=== PATIENT | female | born 1955 | race Caucasian/White ===

== ENCOUNTER 2019-02-13 09:32 | Day surgery (SDC) | payer OTHER ==
[2019-02-13] MEDS ORDERED: LACTATED RINGERS 1,000 ML IV ONE (10:35)
[2019-02-13] MEDS ORDERED: fentaNYL 250 MCG/5 ML VIAL IVP ONE (11:40)
[2019-02-13] MEDS ORDERED: MIDAZOLAM 2 MG/2 ML VIAL IVP ONE (11:40)
[2019-02-13 13:19] VITALS: BP 96/69
== END 2019-02-13 09:33 | disposition home or self-care (01) ==
LOC: SDS 09:32
PROVIDERS: ATTEND Internal Medicine Gastroenterology
PROC: 0DBK8ZZ Excision of Ascending Colon, Via Natural or Artificial Opening Endoscopic (ICD-10-PCS; 2019-02-13)
PROC: 0DBP8ZZ Excision of Rectum, Via Natural or Artificial Opening Endoscopic (ICD-10-PCS; principal; 2019-02-13 10:45)
DX: Z12.11 Encounter for screening for malignant neoplasm of colon (principal); D12.2 Benign neoplasm of ascending colon; K62.1 Rectal polyp; E66.9 Obesity, unspecified; Z68.33 Body mass index [BMI] 33.0-33.9, adult; J45.909 Unspecified asthma, uncomplicated
CPT/HCPCS: 45380; 45385; J3010; J7120

== ENCOUNTER 2019-09-21 15:36 | Outpatient (CLI) | payer OTHER | END 2019-09-21 15:37 | disposition home or self-care (01) | LOC: RT 15:36 | PROVIDERS: ATTEND Naprapath | DX: Z01.818 Encounter for other preprocedural examination (principal); Z13.6 Encounter for screening for cardiovascular disorders | CPT/HCPCS: 93005 ==

== ENCOUNTER 2020-01-14 17:14 | Emergency (ER) | payer OTHER ==
[2020-01-14] MEDS ORDERED: HYDROcod/ACETAM 5/325 MG TABLET PO STA (17:33)
--- NOTE | 2020-01-14 17:34 | ED Physician Documentation ---
PD HPI UPPER EXT INJURY - Stated complaint Stated Complaint: RT SHOULDER PX - Chief complaint Chief Complaint: Ext Problem - History obtained from History obtained from: Patient, Family - History of Present Illness Location: Right (She woke up today with severe right shoulder pain. No clear injury. She cannot move it at all. No history of problems with the shoulder but she has had some back issues in the past.) - Additonal information Additional information: Further history after imaging, patient had slept alone downstairs last night. When she woke up there was some mild delirium and she "sweated," but her noted that it was on one side of the nightgown near the buttock and could also have been urinary incontinence. This leads to the question of potential seizure activity although she never had one. Review of Systems Ten Systems: 10 systems reviewed and negative Constitutional: denies: Fever, Chills Neurologic: denies: Headache, Head injury PD PAST MEDICAL HISTORY - Past Medical History Cardiovascular: None Respiratory: Asthma Endocrine/Autoimmune: None GI: None : None Psych: Depression, Anxiety, Panic attacks Musculoskeletal: None Derm: None - Present Medications Home Medications: Ambulatory Orders Medication Instructions Recorded Confirmed Hydrocodone/Acetaminophen 1 - 2 each PO Q6H PRN #20 tablet 01/14/20 [Hydrocodon-Acetaminophen 5-325] - Allergies Allergies/Adverse Reactions: Allergies Allergy/AdvReac Type Severity Reaction Status Date / Time No Known Drug Allergies Allergy Verified 01/14/20 17:19 PD ED PE NORMAL - Vitals Vital signs reviewed: Yes - General General: Alert and oriented X 3, No acute distress - HEENT HEENT: PERRL, EOMI - Neck Neck: Supple, no meningeal sign, No bony TTP - Extremities Extremities: Other (The shoulder is nontender on the right. She cannot range it at all though. I am able to range it somewhat passively, but even passively cannot get it much above 45 degrees) - Neuro Neuro: Alert and oriented X 3, Normal speech Results - Vitals Vitals: Vital Signs - 24 hr 01/14/20 01/14/20 01/14/20 17:19 18:33 18:38 Temperature 36.5 C Heart Rate 64 62 57 L Respiratory 16 16 16 Rate Blood Pressure 102/61 104/70 103/69 O2 Saturation 98 94 95 01/14/20 01/14/20 01/14/20 18:44 19:32 20:09 Temperature Heart Rate 64 56 L 60 Respiratory 16 18 22 Rate Blood Pressure 99/65 99/66 100/68 O2 Saturation 99 100 100 01/14/20 01/14/20 01/14/20 20:20 20:21 20:22 Temperature Heart Rate 68 61 59 L Respiratory 18 12 15 Rate Blood Pressure 100/68 114/73 94/48 L O2 Saturation 100 95 97 01/14/20 01/14/20 20:23 20:28 Temperature Heart Rate 57 L 65 Respiratory 16 14 Rate Blood Pressure 108/70 113/76 O2 Saturation 100 100 Oxygen O2 Source Nasal cannula - Labs Labs: Laboratory Tests 01/14/20 01/14/20 18:35 18:35 WBC 7.6 RBC 4.28 Hgb 14.1 Hct 40.1 MCV 93.7 MCH 32.9 H MCHC 35.2 RDW 12.7 Plt Count 242 MPV 10.4 Neut # (Auto) 6.1 Lymph # (Auto) 0.9 L Nelson # (Auto) 0.4 Eos # (Auto) 0.0 Baso # (Auto) 0.0 Absolute Nucleated RBC 0.00 Nucleated RBC % 0.0 Sodium 137 Potassium 3.6 Chloride 101 Carbon Dioxide 26 Anion Gap 10.0 BUN 8 Creatinine 0.7 Estimated GFR (MDRD) 84 L Glucose 97 Calcium 8.8 Total Bilirubin 0.8 AST 25 ALT 24 Alkaline Phosphatase 54 Total Protein 6.5 L Albumin 3.8 Globulin 2.7 Albumin/Globulin Ratio 1.4 Lipase 30 - Rads (name of study) Right shoulder x-ray Radiology: EMP read contemporaneously (Comminuted fracture dislocation of the humeral head with an avulsion of the greater tuberosity and comminuted fracture fragments) Procedures - Reduction Body part reduced: Right, Shoulder Fracture or dislocation: Fracture dislocation Anesthesia: Conscious sedation Shoulder reduction technique: Traction - counter tract Reduction aftercare: Alignment improved, Sling - Procedural sedation Sedation prep: Informed consent, Time out completed, Last meal (yest), PE performed, AHA 1 - healthy Sedation medications: propofol (80mg IVP x 1) Patient status during sedation: Responds to tactile, Vitals remained stable, Maintained airway, Recovered uneventfully Sedation recovery: Recovered uneventfully Time in sedation (Minutes): 10 PD MEDICAL DECISION MAKING - ED course ED course: This is a very pleasant 65-year-old woman who presents with atraumatic right shoulder pain in a pattern most consistent with a rotator cuff issue. I was very surprised when I saw her x-rays that showed a fracture dislocation, this was again without trauma. Case was reviewed by phone with the on-call orthopedic surgeon, Dr. Luz. He recommends a trial of reduction and then a CT scan to evaluate for pathologic bone there. It has been a few years since her last mammogram but prior mammograms were okay. Only a few years since her last colonoscopy which was without neoplastic disease. The CT was negative, but the shoulder was still not reduced, the orthopedic surgeon came in and I re-sedated her with propofol and he was able to get it reduced. Still some question about why this happened without trauma. I do not see any evidence of pathologic fracture on the CT. The question of seizure came up given the potential for incontinence, and a CT of the head was done and negative. Departure - Departure Disposition: 01 Home, Self Care Clinical Impression: Confusion Fracture dislocation of shoulder joint Qualifiers: Encounter type: initial encounter Fracture type: closed Laterality: right Qualified Code(s): S42.91XA - Fracture of right shoulder girdle, part unspecified, initial encounter for closed fracture Condition: Good Record reviewed to determine appropriate education?: Yes Instructions: ED Fx Shoulder, ED Dislocation Shoulder Redu Follow-Up: [facility] [Provider Group] Prescriptions: Hydrocodone/Acetaminophen [Hydrocodon-Acetaminophen 5-325] 1 - 2 each PO Q6H PRN #20 tablet PRN Reason: pain Comments: Follow-up with the primary care physician as soon as possible. Return for new or worsening symptoms. Call the orthopedics office tomorrow for further evaluation and treatment. As discussed no clear evidence of seizure but I think the safest thing would to be not to drive until primary care physician has referred you to neurology and had that work-up.
--- NOTE | 2020-01-14 18:01 | XRAY Report ---
PROCEDURE: Shoulder 3 View RT INDICATIONS: shoulder pain TECHNIQUE: 3 views of the shoulder were acquired. COMPARISON: None. FINDINGS: Bones: There is a comminuted fracture/dislocation seen involving the right shoulder. There is anteri or dislocation of the right humeral head in relation to the glenoid fossa. The greater tuberosity is avulsed, with numerous associated comminuted fracture fragments. No suspicious bony lesions. Visualized ribs appear intact. Age-appropriate degenerative changes ar e seen. Soft tissues: No suspicious soft tissue calcifications. The visualized lung demonstrates a normal a ppearance. IMPRESSION: Right shoulder fracture/dislocation. If clinically appropriate, please consider a dedicated shoulder CT for further evaluation. Reviewed by: Adiel Crane MD on 01/14/2020 4:59 PM ALLY Approved by: Adiel Crane MD on 01/14/2020 4:59 PM ALLY Station ID: [id number]
[2020-01-14] MEDS ORDERED: PROPOFOL 200 MG/20 ML VIAL IVP STA ×2 (18:24→19:54)
[2020-01-14 18:52] LABS: BASOPHILS % (AUTO) 0.5 %; EOSINOPHILS % (AUTO) 0.1 %; HGB - HEMOGLOBIN 14.1 g/dL (12.0-16.0); LYMPHOCYTES # (AUTO) 0.9 10^3/uL (1.5-3.5); LYMPHOCYTES % (AUTO) 12.4 %; MEAN CORPUSCULAR HEMOGLOBIN 32.9 pg (27.0-31.0); MEAN CORPUSCULAR HGB CONC 35.2 g/dL (32.0-36.0); MEAN CORPUSCULAR VOLUME 93.7 fL (81.0-99.0); MEAN PLATELET VOLUME 10.4 fL (7.9-10.8); MONOCYTES # (AUTO) 0.4 10^3/uL (0.0-1.0); MONOCYTES % (AUTO) 5.8 %; NEUTROPHILS # (AUTO) 6.1 10^3/uL (1.5-6.6); NEUTROPHILS % (AUTO) 80.9 %; PLT - PLATELET COUNT 242 10^3/uL (130-450); RED BLOOD COUNT 4.28 10^6/uL (4.20-5.40); RED CELL DISTRIBUTION WIDTH 12.7 % (12.0-15.0); WHITE BLOOD COUNT 7.6 x10^3/uL (4.8-10.8)
[2020-01-14 19:03] LABS: ALBUMIN 3.8 g/dL (3.2-5.5); ALBUMIN/GLOBULIN RATIO 1.4 (1.0-2.2); BILIRUBIN,TOTAL 0.8 mg/dL (0.2-1.0); CALCIUM 8.8 mg/dL (8.5-10.3); CREATININE 0.7 mg/dL (0.4-1.0); TOTAL PROTEIN 6.5 g/dL (6.7-8.2)
--- NOTE | 2020-01-14 19:59 | CT Report ---
PROCEDURE: HEAD WO INDICATIONS: poss seizure TECHNIQUE: Noncontrast 4.5 mm thick angled axial sections acquired from the foramen magnum to the vertex. For r adiation dose reduction, the following was used: automated exposure control, adjustment of mA and/or kV according to patient size. COMPARISON: None. FINDINGS: Image quality: Excellent. CSF spaces: Basal cisterns are patent. No extra-axial fluid collections. Ventricles are normal in size and shape. Brain: No midline shift. No intracranial masses or hemorrhage. Webster-white matter interface is norm al. Skull and face: Calvarium and visualized facial bones are intact, without suspicious lesions. Sinuses: Visualized sinuses and mastoids are clear. IMPRESSION: 1. No acute intracranial process. Reviewed by: Swathi Sean MD on 01/14/2020 7:58 PM PDT Approved by: Swathi Sena MD on 01/14/2020 7:58 PM PDT Station ID: [id number]
--- NOTE | 2020-01-14 20:04 | CT Report ---
PROCEDURE: UPPER EXTREMITY WO - RT INDICATIONS: post reduction R shoulder frx/dislocation NO TRAUM TECHNIQUE: Noncontrast 3 mm axial sections acquired of the right shoulder, with coronal and sagittal reformats. COMPARISON: X-ray shoulder 01/14/2020 FINDINGS: Image quality: Excellent. Bones: There is a comminuted dislocated fracture of the humeral head. There is fracture and avulsion of the greater tuberosity. The remaining portion of the humeral head is located in an nondisplaced f racture is noted along the posterior scapula, medial to the glenohumeral joint. Inferior location in relation to the glenohumeral joint. Small areas of fracture are noted along the glenoid margin of the glenohumeral joint particularly the inferior aspect. Soft tissues: Soft tissue edema/hematoma is present. IMPRESSION: 1. Comminuted fracture of the humeral head including avulsion of the greater tuberosity. 2. Dislocation of the humeral head inferiorly from the glenohumeral joint. 3. Nondisplaced fracture along the inferior margin of the glenoid at the glenohumeral joint. 4. Nondisplaced fracture of the posterior scapula noted medial to the glenohumeral joint. Reviewed by: Swathi Sena MD on 01/14/2020 8:02 PM PDT Approved by: Swathi Sena MD on 01/14/2020 8:02 PM PDT Station ID: [id number]
--- NOTE | 2020-01-14 20:33 | XRAY Report ---
PROCEDURE: Shoulder 2 View RT INDICATIONS: Postreduction #2 TECHNIQUE: 2 views of the shoulder were acquired. COMPARISON: X-ray shoulder and CT shoulder 01/14/2020 FINDINGS: Bones: There is been interval reduction of previous shoulder dislocation with good anatomic alignment . Comminuted humeral head fracture with avulsion of the greater tuberosity is again noted. Areas of f racture along the glenoid as well as scapula are better appreciated on CT exam. No suspicious bony le sions. Visualized ribs appear intact. Soft tissues: No suspicious soft tissue calcifications. IMPRESSION: Interval reduction of dislocated humeral fracture with good anatomic alignment as above. Reviewed by: Swathi Sena MD on 01/14/2020 8:31 PM PDT Approved by: Swathi Sena MD on 01/14/2020 8:31 PM PDT Station ID: [id number]
[2020-01-14] MEDS ORDERED: HYDROcod/ACET 5/325 Prepack 4 PO STA (20:36)
[2020-01-14] MEDS ORDERED: MORPHINE 2 MG/ML CARPUJECT IVP STA (20:36)
--- NOTE | 2020-01-14 20:44 | HISTORY & PHYSICAL EXAMINATION ---
HPI - History Obtained From History obtained from: Patient (This is a relatively healthy 65-year-old woman who presents to the emergency room with pain to her right shoulder. She denies any recollection of any recent or past injury to her right shoulder. She awoken this morning with some pain and confusion with the pain being to her right shoulder. She winn) PMH/PSH - Past Medical History Cardiovascular: positive: None Respiratory: positive: Asthma Neuro: positive: None Endocrine/Autoimmune: positive: None GI: positive: None : positive: None Psych: positive: Depression, Anxiety, Panic attacks Musculoskeletal: positive: None Derm: positive: None MRSA Hx?: No Social & Family Hx - Social History Does the pt smoke?: No Smoking Status: Never smoker Meds/Allgy - Home Medications Home Medications: Ambulatory Orders Medication Instructions Recorded Confirmed Hydrocodone/Acetaminophen 1 - 2 each PO Q6H PRN #20 tablet 01/14/20 [Hydrocodon-Acetaminophen 5-325] - Allergies Allergies/Adverse Reactions: Allergies Allergy/AdvReac Type Severity Reaction Status Date / Time No Known Drug Allergies Allergy Verified 01/14/20 17:19 Review of Systems - Constitutional Constitutional: denies: Fatigue (Negative review of systems) Exam - Vital Signs Vital Signs: Vital Signs x48h Temp Pulse Resp BP Pulse Ox 01/14/20 20:28 65 14 113/76 100 01/14/20 20:23 57 L 16 108/70 100 01/14/20 20:22 59 L 15 94/48 L 97 01/14/20 20:21 61 12 114/73 95 01/14/20 20:20 68 18 100/68 100 01/14/20 20:09 60 22 100/68 100 01/14/20 19:32 56 L 18 99/66 100 01/14/20 18:44 64 16 99/65 99 01/14/20 18:38 57 L 16 103/69 95 01/14/20 18:33 62 16 104/70 94 01/14/20 17:19 36.5 C 64 16 102/61 98 - Physical Exam General Appearance: positive: Mild distress Eyes Bilateral: positive: Normal inspection ENT: positive: ENT inspection nml Neck: positive: Nml inspection Respiratory: positive: Chest non-tender Cardiovascular: positive: Regular rate & rhythm Abdomen: positive: Non-tender Skin: positive: Color nml Extremities: negative: Other (Right shoulder shows a space beneath the acromion. Sensation of the deltoid is intact. She has limited and painful movement of the right shoulder. Skin is intact. The right shoulder is tender anteriorly and laterally. Pulses are intact to right upper extremity.) Results - Lab Results Fish Bones: 01/14/20 18:35 01/14/20 18:35 Other Lab Results: Lab Results x24hrs 01/14/20 01/14/20 Range/Units 18:35 18:35 WBC 7.6 (4.8-10.8) x10^3/uL RBC 4.28 (4.20-5.40) 10^6/uL Hgb 14.1 (12.0-16.0) g/dL Hct 40.1 (37.0-47.0) % MCV 93.7 (81.0-99.0) fL MCH 32.9 H (27.0-31.0) pg MCHC 35.2 (32.0-36.0) g/dL RDW 12.7 (12.0-15.0) % Plt Count 242 (130-450) 10^3/uL MPV 10.4 (7.9-10.8) fL Neut # (Auto) 6.1 (1.5-6.6) 10^3/uL Lymph # (Auto) 0.9 L (1.5-3.5) 10^3/uL Mayes # (Auto) 0.4 (0.0-1.0) 10^3/uL Eos # (Auto) 0.0 (0.0-0.7) 10^3/uL Baso # (Auto) 0.0 (0.0-0.1) 10^3/uL Absolute Nucleated RBC 0.00 x10^3/uL Nucleated RBC % 0.0 /100WBC Sodium 137 (135-145) mmol/L Potassium 3.6 (3.5-5.0) mmol/L Chloride 101 (101-111) mmol/L Carbon Dioxide 26 (21-32) mmol/L Anion Gap 10.0 (6-13) BUN 8 (6-20) mg/dL Creatinine 0.7 (0.4-1.0) mg/dL Estimated GFR (MDRD) 84 L (>89) Glucose 97 (70-100) mg/dL Calcium 8.8 (8.5-10.3) mg/dL Total Bilirubin 0.8 (0.2-1.0) mg/dL AST 25 (10-42) IU/L ALT 24 (10-60) IU/L Alkaline Phosphatase 54 (42-121) IU/L Total Protein 6.5 L (6.7-8.2) g/dL Albumin 3.8 (3.2-5.5) g/dL Globulin 2.7 (2.1-4.2) g/dL Albumin/Globulin Ratio 1.4 (1.0-2.2) Lipase 30 (22-51) U/L - Diagnostic Imaging Results Diagnostic Imaging Results: positive: Read independently (There is a fracture dislocation of the right shoulder with a comminuted and relatively large greater tuberosity fragment. The humeral head is dislocated anteriorly. An attempt at closed reduction by the emergency room physician was unsuccessful and show pe rsistence of the fracture dislocation. Th) Impression/Plan - Problem List Problem List: Fracture greater tuberosity with anterior dislocation right shoulder I suggested a attempt at closed reduction using heavy sedation with providing sedation. I have discussed the risks, goals and alternatives. She is in agreement to the procedure. If she cannot achieve a reduction of the humeral head into the glenoid fossa, then she will need surgical treatment in the operating room. This procedure will be performed to the emergency room. She may require future surgery for any recurrence of dislocation or perhaps if fracture of the greater tuberosity does not realign in a satisfactory fashion. Other potential issues are axillary nerve injury from dislocation. She is in agreement to the procedure, has signed informed consent; actually, her has signed the consent since she has had some previous sedation.
[2020-01-14 20:46] VITALS: BP 112/77
--- NOTE | 2020-01-14 20:54 | OPERATIVE REPORT ---
Operative Report - General Procedure Date: 01/14/20 Planned Procedure: Closed reduction right shoulder dislocation with sedation Procedure Performed: Close reduction anterior dislocation right shoulder with fracture right greater tuberosity - Procedure Note Primary Surgeon: Dr. Kavon Luz Anesthesia Technique: MAC Indications: This is a relatively healthy 65-year-old woman who awoken today with pain to her right shoulder. She denies on repeated questioning any injury to her right shoulder and was doing well with her right shoulder until today. She has no history of any previous problems with the right shoulder. There is no history of loss of consciousness, syncope, chest pain or shortness of breath. She did have some confusion this morning but this has resolved. She has localized pain to the right shoulder and marked difficulty with any attempted movement of right shoulder. She had a glass and a half a wine over several hour. Prior to going to bed last night. She had a CT scan of the head which was felt to be normal. Her mental status at this time is appropriate. Findings: She has a fracture of the greater tuberosity of the right shoulder, comminuted; this is associated with an anterior dislocation of the humeral head. The fracture of the greater tuberosity is split in the least 2 pieces. Complications: No complications - Other Other Information/Narrative: This is a 65-year-old woman who was treated in the emergency room. She was positioned supine. Heavy sedation was provided by the emergency room physician with respiratory monitoring. A timeout procedure was performed and all were in agreement. The reduction of the right shoulder was performed by achieving full forward flexion with the arm at her side and direct pressure over the anterior humeral head, then externally rotating the shoulder with audible reduction. The clinical deformity was improved and routine radiographs showed a humeral head that was realigned into the glenoid fossa. The greater tuberosity fracture alignment was improved but not anatomic. A shoulder sling was applied. Her sensation to the right upper extremity including the deltoid area was normal. She had good peripheral pulses.She tolerated the procedure well. She did call our office tomorrow for a orthopedic clinic follow-up and [place]. She is to use an arm sling on the right side.
== END 2020-01-14 21:13 | disposition home or self-care (01) ==
LOC: ED 17:14
DX: S42.254A Nondisplaced fracture of greater tuberosity of right humerus, initial encounter for closed fracture (principal); S42.144A Nondisplaced fracture of glenoid cavity of scapula, right shoulder, initial encounter for closed fracture; X58.XXXA Exposure to other specified factors, initial encounter; R41.0 Disorientation, unspecified
CPT/HCPCS: 23625; 36415; 70450; 73030; 73200; 80053; 83690; 85025; 96374; 96375; 96376; 99152; 99284; A9270

== ENCOUNTER 2020-01-23 09:44 | Outpatient (CLI) | payer OTHER ==
--- NOTE | 2020-01-23 10:07 | XRAY Report ---
Reason: RIGHT SHOULDER FRACTURE Procedure Date: 01/23/2020 Accession Number: [id number] / [id number] Procedure: WCP - Shoulder 2 View RT CPT Code: Final Report FULL RESULT: PROCEDURE: Shoulder 2 View RT INDICATIONS: RIGHT SHOULDER FRACTURE TECHNIQUE: 3 views of the shoulder were acquired. COMPARISON: 01/14/2020 FINDINGS: Bones: Stable appearance and alignment of known comminuted right humeral head fracture and avulsion of the greater tuberosity. Minimally displaced glenoid and scapular fractures are again noted. No suspicious bony lesions. Visualized ribs appear intact. Degenerative changes of the right acromioclavicular joint. Soft tissues: No suspicious soft tissue calcifications. IMPRESSION: Stable radiographic appearance and alignment of comminuted right humeral head fracture with avulsion of the greater tuberosity as well as right glenoid and scapular fractures. Reviewed by: Angel Saavedra MD on 01/23/2020 10:06 AM PDT Approved by: Angel Saavedra MD on 01/23/2020 10:06 AM PDT Station ID: [id number]
== END 2020-01-23 23:59 | disposition home or self-care (01) ==
LOC: DI.WCP 09:44
PROVIDERS: ATTEND Orthopaedic Surgery
DX: S42.291D Other displaced fracture of upper end of right humerus, subsequent encounter for fracture with routine healing (principal)

== ENCOUNTER 2020-03-07 07:29 | Outpatient (CLI) | payer OTHER ==
--- NOTE | 2020-03-08 06:22 | XRAY Report ---
PROCEDURE: Shoulder 3 View RT INDICATIONS: RIGHT HUMERAL HEAD FRACTURE TECHNIQUE: 4 views of the shoulder were acquired. COMPARISON: 2 views of the right shoulder dated 01/14/2020 FINDINGS: Bones: Right humeral tuberosity fracture is redemonstrated. Interval callus is now visualized. Fractu re fragments are in unchanged anatomic alignment. Soft tissues: No suspicious soft tissue calcifications. IMPRESSION: Partial interval healing of the proximal right humeral fracture with callus now visualiz ed. Reviewed by: Apolonia Starkey MD on 03/07/2020 4:15 PM PDT Approved by: Apolonia Starkey MD on 03/07/2020 4:15 PM PDT Station ID: [id number]
== END 2020-03-07 23:59 | disposition home or self-care (01) ==
LOC: DI.WCP 07:29
PROVIDERS: ATTEND Physician Assistant
DX: S42.251D Displaced fracture of greater tuberosity of right humerus, subsequent encounter for fracture with routine healing (principal)

== ENCOUNTER 2020-10-21 13:43 | Outpatient (CLI) | payer OTHER ==
--- NOTE | 2020-10-22 12:05 | Mammography Report ---
BILATERAL DIGITAL SCREENING MAMMOGRAM 3D/2D WITH EXAGGERATED CC: 10/21/2020 CLINICAL: Family history of breast cancer. Comparison is made to exams dated: 06/29/2016 mammogram, 07/14/2015 mammogram, and 10/22/2013 mammogra m - [facility]. The tissue of both breasts is heterogeneously dense. This may lowe r the sensitivity of mammography. No significant masses, calcifications, or other findings are seen in either breast. There has been no significant interval change. IMPRESSION: NEGATIVE There is no mammographic evidence of malignancy. A 1 year screening mammogram is recommended. This exam was interpreted at Station ID: [id number]. NOTE: For mammograms, a report in lay terms will be sent to the patient. Approximately 15% of breast malignancies will not be visualized mammographically. In the management of a palpable breast mass, a negative mammogram must not discourage biopsy of a clinically suspicious lesion. Electronically Signed By: Claire fuller/penchela:10/21/2020 14:57:47 ACR BI-RADS Category 1: Negative 3341F PARENCHYMAL PATTERN: (D) - The breast(s) demonstrate(s) heterogeneously dense fibroglandular latoya burnette. BI-RADS CATEGORY: (1) - 1 RECOMMENDATION: (ANNUAL) - Recommend routine annual screening mammography. 20211022 1 year screening LATERALITY: (B)
== END 2020-10-21 13:44 | disposition home or self-care (01) ==
LOC: DI.S 13:43
DX: Z12.31 Encounter for screening mammogram for malignant neoplasm of breast (principal)

== ENCOUNTER 2020-12-16 17:59 | Outpatient (CLI) | payer OTHER ==
--- NOTE | 2020-12-17 10:12 | XRAY Report ---
PROCEDURE: Shoulder 3 View RT INDICATIONS: DISPLACED FX OF GREATER TUBEROSITY OF R HUMERUS TECHNIQUE: 4 views of the shoulder were acquired. COMPARISON: 03/07/2020. FINDINGS: Bones: No acute fractures or dislocations. There is deformity of the greater tuberosity consistent with sequelae of an old fracture redemonstrated. There is mild acromioclavicular joint degeneration. No suspicious bony lesions. Visualized ribs appear intact. Soft tissues: No suspicious soft tissue calcifications. IMPRESSION: 1. No acute fracture or dislocation. 2. Sequelae of an old greater tuberosity fracture redemonstrated. Reviewed by: Jonathan Marie MD on 12/17/2020 10:11 AM PDT Approved by: Jonathan Marie MD on 12/17/2020 10:11 AM PDT Station ID: [id number]
== END 2020-12-16 23:59 | disposition home or self-care (01) ==
LOC: DI.N 17:59
PROVIDERS: ATTEND Physician Assistant
DX: S42.251S Displaced fracture of greater tuberosity of right humerus, sequela (principal)

== ENCOUNTER 2022-07-14 12:30 | Outpatient (CLI) | payer OTHER ==
[2022-07-14 11:55] LABS: BILIRUBIN,URINE NEGATIVE (NEGATIVE); GLUCOSE, URINE (UA) NEGATIVE (NEGATIVE); KETONES,URINE (UA) NEGATIVE (NEGATIVE); LEUKOCYTE ESTERASE, URINE LARGE (NEGATIVE); NITRITE,URINE NEGATIVE (NEGATIVE); OCCULT BLOOD,URINE LARGE (NEGATIVE); PROTEIN,URINE 30 mg/dL (NEGATIVE); UROBILINOGEN,URINE 0.2 (NORMAL) E.U./dL (NORMAL)
[2022-07-14 11:59] LABS: CLARITY,URINE CLEAR (CLEAR)
[2022-07-14 13:22] LABS: WBC,URINE >25 /HPF (0-5)
[2022-07-14 13:23] LABS: BACTERIA,URINE Many /HPF (None Seen); RBC,URINE 0-5 /HPF (0-5); SQUAMOUS EPITHELIAL CELL,UR FEW Squamous (<= Few)
== END 2022-07-14 23:59 | disposition home or self-care (01) ==
LOC: LAB.S 12:30
PROVIDERS: ATTEND Emergency Medicine
DX: R30.0 Dysuria (principal)
CPT/HCPCS: 81001; 87086